=== PATIENT | male | born 1960 | race Caucasian/White ===

== ENCOUNTER 2016-08-09 22:21 | Emergency (ER) | payer OTHER ==
[~2016-08-09 22:21] MED LIST: BENICAR40 MG PO; GLUCOPHAGE850 MG PO; GLYBURIDE2.5 MG PO; LOVASTATIN40 MG PO; METOPROLOL SUC100 M1 PO; POLYTRIM O200 GTT/BO OP
[2016-08-10] MEDS ORDERED: IBUPROFEN600 M1 PO (00:03)
[2016-08-10] MEDS ORDERED: ULTRAM50 M1 PO (00:03)
[2016-08-10] MEDS ORDERED: BACLOFEN10 M1 PO (00:03)
--- NOTE | 2016-08-10 00:05 | ED UPPER/LOWER EXTREMITY COMPL ---
History of Present Illness General Chief Complaint: Upper Extremity Problem Stated Complaint: PT HURT HIS RT SHOULDER Source: patient, old records Exam Limitations: no limitations Vital Signs & Intake/Output Vital Signs & Intake/Output Vital Signs Date Time Temp Pulse Resp B/P B/P Pulse O2 O2 Flow FiO2 Mean Ox Delivery Rate 08/09 2228 97.8 90 22 139/83 98 ED Intake and Output 08/10 0000 08/09 1200 Intake Total Output Total Balance Patient 193 lb Weight Allergies Coded Allergies: MDX - Canagliflozin (From INVOKANA) (Severe, MUSCLE PAIN AND RASH 01/21/15) MDX - Brompheniramine (From DIMETAPP DM) (RASH 09/16/11) MDX - Dextromethorphan (From DIMETAPP DM) (RASH 09/16/11) MDX - Phenylpropanolamine (From DIMETAPP DM) (RASH 09/16/11) morphine (DOES NOT WORK 08/09/16) Reconcile Medications Glyburide 2.5 MG TAB 1-2 TAB PO BID DIABETES (Reported) Lovastatin 40 MG TAB 1 TAB PO DAILY CHOLESTEROL (Reported) with food Metformin Hydochloride (Glucophage) 850 MG TAB 1 TAB PO BID DIABETES ( Reported) Metoprolol Succinate (Metoprolol Succinate XL) [address] 1 TAB PO DAILY HEART (Reported) Olmesartan Medoxomil (Benicar) 40 MG TAB 1 TAB PO DAILY HEART (Reported) Polytrim (Polytrim Eye Drops) 200 GTT/BOT GTT 2 GTT OP Q4HR CORNEAL ABRAISON Triage Note: PER PT LEANED UNDER COUNTER AND RT SHOULDER BEGAN TO HURT, TOOK ASPIRIN X 2 AND 2 TYLENOL WITHOUT EFFECT ICE AND HEAT NO HELP. DECREASED ROM, PULSES PRESNENT Triage Nurses Notes Reviewed? yes Onset: Just prior to arrival Duration: hour(s):, constant, continues in ED Timing: recent history Severity: severe Pain/Injury Location: Right: Shoulder. Method of Injury: reaching Modifying Factors: Improves With: immobilization, rest. Worsens With: movement. Associated Symptoms: sudden, stiffness HPI: Prior to admission while on his hands and knees patient reached under a toolbox to retrieve a ball for his dog. He then felt sharp severe right shoulder pain with limited range of motion nonradiating constant. He denies fever chills nausea vomiting diarrhea abdominal pain chest pain shortness of breath headache dysuria rash bleeding previous injury. He is right-hand dominant. Past History Travel History Traveled to [place] past 21 day No Medical History Any Pertinent Medical History? see below for history Neurological: NONE EENT: NONE Cardiovascular: hypertension Respiratory: NONE Gastrointestinal: NONE Hepatic: NONE Renal: NONE Musculoskeletal: NONE Psychiatric: NONE Endocrine: DM Surgical History Surgical History: non-contributory Psychosocial History What is your primary language Slovak Tobacco Use: Never used Family History Hx Contributory? No Review of Systems Review of Systems Constitutional: Reports: no symptoms. EENTM: Reports: no symptoms. Respiratory: Reports: no symptoms. Cardiovascular: Reports: no symptoms. Gastrointestinal/Abdominal: Reports: no symptoms. Genitourinary: Reports: no symptoms. Musculoskeletal: Reports: see HPI, joint pain. Skin: Reports: no symptoms. Neurological/Psychological: Reports: no symptoms. Hematologic/Endocrine: Reports: no symptoms. Immunological: Reports: no symptoms. All Other Systems: Reviewed and Negative Physical Exam Physical Exam General Appearance: well developed/nourished, alert, awake, anxious, mild distress Head: atraumatic Eyes: Bilateral: PERRL, EOMI. Ears, Nose, Throat: normal pharynx, normal ENT inspection, hearing grossly normal Neck: normal inspection, supple Cardiovascular/Respiratory: regular rate/rhythm Peripheral Pulses: 4+ carotid (R), 4+ carotid (L) Back: normal inspection, normal range of motion, no vertebral tenderness Shoulder Left: normal range of motion, normal inspection Shoulder Right: normal inspection, soft tissue tenderness, limited range of motion Elbow Left: normal range of motion, normal inspection Elbow Right: normal range of motion, normal inspection Hand Left: normal inspection, normal range of motion Hand Right: normal inspection, normal range of motion Upper Extremity Reflexes: 2+: bicep (R), bicep (L). Leg Left: normal range of motion, normal inspection Leg Right: normal range of motion, normal inspection Hip Left: normal range of motion, normal inspection Hip Right: normal range of motion, normal inspection Knee Left: normal range of motion, normal inspection Knee Right: normal range of motion, normal inspection Foot Left: normal inspection, normal range of motion Foot Right: normal inspection, normal range of motion Lower Extremity Reflexes: 2+: knee (R), knee (L). Neurologic/Tendon: normal sensation, normal motor functions, normal tendon functions Skin: intact, normal color, warm/dry Lymphatic: no anterior cervical chanelle Progress Differential Diagnosis: contusion, dislocation, sprain Plan of Care: Orders Procedure Date/time Status Durable Medical Equipment 08/10 0001 Active XRY-SHOULDER COMPLETE-RIGHT 08/10 2231 Active Current Medications Sig/Yg Start time Last Medication Dose Stop Time Status Admin Cyclobenzaprine HCl 10 MG ONCE ONE 08/105 UNVr (Flexeril 10MG Tab) 08/10 2345 Ibuprofen 800 MG ONCE ONE 08/10 0015 UNVr (Motrin) 08/10 0016 Oxycodone/ 1 TAB ONCE ONE 08/10 0015 UNVr Acetaminophen 08/10 0016 (Percocet) Diagnostic Imaging: Viewed by Me: Radiology Read. Discussed w/RAD: Radiology Read. Radiology Impression: no fracture, no dislocation, calcific tendonitis Departure Departure Time of Disposition: 0000 Disposition: HOME OR SELF CARE Condition: Stable Clinical Impression Primary Impression: Calcific tendonitis of right shoulder Referrals: JAMIR PEARSON,ALEXANDER Lorenzo Call for orthopedic follow up SHEA PEARSON,EVELINA Gallagher (PCP/Family) Departure Forms: Customer Survey General Discharge Information Prescriptions: Current Visit Scripts Ibuprofen 1 TAB PO Q6PRN PRN pain #50 TAB with food Baclofen 1 TAB PO TIDPRN PRN muscle spasm/strain #30 TAB Tramadol HCl (Ultram) 1-2 TAB PO Q6PRN PRN severe pain #30 TAB
--- NOTE | 2016-08-10 00:19 | RADIOLOGY REPORT ---
EXAMINATION: XR SHOULDER, RIGHT CLINICAL INFORMATION: Pain, no trauma COMPARISON: None TECHNIQUE: Three views of the right shoulder. FINDINGS: Glenohumeral alignment is anatomic. No acute fracture is seen. There are degenerative changes at the acromioclavicular and glenohumeral joints. The acromioclavicular joint is maintained. IMPRESSION: No acute findings identified. Degenerative changes.
[2016-08-10 00:24] VITALS: BP 129/81
== END 2016-08-10 00:26 ==
LOC: ERH 22:21
DX: M75.31 Calcific tendinitis of right shoulder (principal)
CPT/HCPCS: 73030-RT